=== PATIENT | female | born 1990 | race Caucasian/White ===

== ENCOUNTER 2016-10-23 07:22 | Emergency (ER) | payer OTHER ==
[~2016-10-23] VITALS: Ht 162.6 cm; Wt 72.7 kg
[~2016-10-23 07:22] MED LIST: MOTRIN 600600 MG/TAB PO; MOTRIN 800800 MG/TAB PO; NORCO 325 MG-51 TAB PO; PERCOCET 325 MG1 TA2 PO; PRENATAL VITAMI1 T12 PO; PRENATAL VITAMI1 TA5 PO; SENOKOT S 50 MG1 TAB PO
[2016-10-23 07:23] VITALS: BP 116/82; PULSE 95; TEMP 98.5
== END 2016-10-23 09:05 | disposition home or self-care (01) ==
LOC: COL.ER 07:22
DX: O46.91 Antepartum hemorrhage, unspecified, first trimester (principal); Z3A.01 Less than 8 weeks gestation of pregnancy